=== PATIENT | male | born 1970 | race Caucasian/White ===

== ENCOUNTER 2019-12-06 07:02 | Emergency (ER) | payer OTHER ==
[~2019-12-06] VITALS: Ht 180.3 cm; Wt 87.1 kg
[~2019-12-06 07:02] MED LIST: CIPROFLOXACIN750 MG ORAL; IBUPROFEN600 MG ORAL; PROPECIA1 MG PO
[2019-12-06 07:05] VITALS: BP 147/92
--- NOTE | 2019-12-06 07:12 | NUR ---
ED Nurse Note: patient walked into ED from home c/o diffuse abdominal cramping and pain that started last night. patient reports having some trouble urinating, "feels like I'm getting a prostate exam when voiding." patient reports unable to pass stool at this time. patient is alert awake x ambulatory, breathing unlabored and even, speaking in full sentences. patient on a hospital gown.
[2019-12-06] MEDS ORDERED: Omnipaque-300 100ml vial INJ PRN (07:30)
[2019-12-06] MEDS ORDERED: Morphine Sulfate 4mg/ml Inj (IV USE ONLY) IVP ONE (07:30)
--- NOTE | 2019-12-06 07:40 | NUR ---
ED Nurse Note: patient refused to take pain medications at this time, toradol and morphine, "I'm fine when I' lying donw, I don't need medications at this time."
[2019-12-06] MEDS: Ketorolac 30mg Inj IV ONE ×2 (07:43→09:29)
[2019-12-06 07:52] LABS: BASOPHILS % (AUTO) 0.5 % (0.0-2.0); EOSINOPHILS % (AUTO) 0.4 % (0.0-3.0); HEMATOCRIT 43.8 % (42.0-52.0); HEMOGLOBIN 15.3 G/DL (14.2-18.0); LYMPHOCYTES % (AUTO) 14.1 % (20.0-45.0); MEAN CORPUSCULAR VOLUME 100 FL (80-99); MONOCYTES % (AUTO) 6.1 % (1.0-10.0); NEUTROPHILS % (AUTO) 78.9 % (45.0-75.0); PLATELET COUNT 173 K/UL (150-450); RED BLOOD COUNT 4.38 M/UL (4.70-6.10); RED CELL DISTRIBUTION WIDTH 11.7 % (11.6-14.8); WHITE BLOOD COUNT 10.1 K/UL (4.8-10.8)
[2019-12-06 07:54] LABS: APPEARANCE,URINE CLEAR; BILIRUBIN, URINE NEGATIVE (NEGATIVE); GLUCOSE, URINE (UA) NEGATIVE (NEGATIVE); KETONES,URINE 1+ (NEGATIVE); LEUKOCYTE ESTERASE ,URINE NEGATIVE (NEGATIVE); NITRITE,URINE NEGATIVE (NEGATIVE); PH,URINE 5 (4.5-8.0); PROTEIN,URINE NEGATIVE (NEGATIVE); UROBILINOGEN,URINE NORMAL MG/DL (0.0-1.0)
--- NOTE | 2019-12-06 07:58 | Emergency Room Report ---
History of Present Illness General Chief Complaint: Abdominal Pain Source: Patient Present Illness HPI 48-year-old male presents ED for evaluation of abdominal pain. States he has not had a bowel movement for the last 3 days. Notes hard small stool. Has used MiraLAX and enema without relief. Pain is cramping, 8 out of 10, nonradiating. Denies nausea or vomiting. Denies chest pain. Denies fevers or chills. No other aggravating relieving factors. Denies any other associated symptoms Allergies: Coded Allergies: No Known Allergies (Unverified , 03/11/13) Patient History Past Medical History: none Past Surgical History: none Pertinent Family History: none Social History: Denies: smoking, alcohol use, drug use Immunizations: UTD Reviewed Nursing Documentation: PMH: Agreed; PSxH: Agreed Nursing Documentation-PMH Past Medical History: No Stated History Review of Systems All Other Systems: negative except mentioned in HPI Physical Exam Vital Signs Date Time Temp Pulse Resp B/P (MAP) Pulse Ox O2 Delivery O2 Flow Rate FiO2 12/06/19 07:05 97.9 64 17 147/92 (110) 99 Room Air Sp02 EP Interpretation: reviewed, normal General Appearance: no apparent distress, alert, GCS 15, non-toxic Head: normocephalic, atraumatic Eyes: bilateral eye normal inspection, bilateral eye PERRL ENT: hearing grossly normal, normal pharynx, no angioedema, normal voice Neck: full range of motion, supple/symm/no masses Respiratory: chest non-tender, lungs clear, normal breath sounds, speaking full sentences Cardiovascular #1: regular rate, rhythm, no edema Cardiovascular #2: 2+ carotid (R), 2+ carotid (L), 2+ radial (R), 2+ radial (L) , 2+ dorsalis pedis (R), 2+ dorsalis pedis (L) Gastrointestinal: normal bowel sounds, soft, non-distended, no guarding, no rebound, tenderness Rectal: deferred Genitourinary: normal inspection, no CVA tenderness Musculoskeletal: back normal, normal range of motion, gait/station normal, non- tender Neurologic: alert, motor strength/tone normal, oriented x3, sensory intact, responsive, speech normal Psychiatric: judgement/insight normal, memory normal, mood/affect normal, no suicidal/homicidal ideation Reflexes: 3+ bicep (R), 3+ bicep (L), 3+ tricep (R), 3+ tricep (L), 3+ knee (R) , 3+ knee (L) Skin: no rash Lymphatic: no adenopathy Medical Decision Making Diagnostic Impression: Primary Impression: Diverticulitis Additional Impression: Constipation Qualified Codes: K59.00 - Constipation, unspecified ER Course Hospital Course 48-year-old M presents to ED with lower abdominal pain. no BM x 3 days Differential diagnoses include: appendicitis, diverticulitis, SBO, gastroenteritis Clinical course Patient placed on stretcher. desk sergeant. After initial history and physical I ordered labs, IV fluids, UA, pain medication and CT scan Labs - no leukocytosis, Hb/Hct stable. electrolytes ok. CT abdomen and pelvis - diverticulitis, fecal impaction, no SBO I discussed findings with patient and family at bedside. No sign of SBO. Patient states he recently started a keto diet which likely triggered his diverticulitis and can be causing his constipation. No sign of bowel obstruction. Afebrile, nontoxic-appearing. Will discharge home with antibiotics and stool softeners. States he will follow-up with his GI. Given copies of labs and CT. Given Cipro and Flagyl here in ED I feel this is a highly complex case requiring extensive working including EKG/ Rhythm strip, Xray/CT/US, Blood/urine lab work, repeat exams while in ED, and administration of strong opiates/narcotics for pain control, admission to hospital or close patient follow up. Diagnosis - divertculitis, constipation stable and discharged to home with prescription for Cipro and Flagyl, colace, magnesium citrate. Followup with PMD. Return to ED if symptoms recur or worsen Labs Test 12/06/19 07:33 White Blood Count 10.1 K/UL (4.8-10.8) Red Blood Count 4.38 M/UL (4.70-6.10) Hemoglobin 15.3 G/DL (14.2-18.0) Hematocrit 43.8 % (42.0-52.0) Mean Corpuscular Volume 100 FL (80-99) Mean Corpuscular Hemoglobin 34.9 PG (27.0-31.0) Mean Corpuscular Hemoglobin Concent 35.0 G/DL (32.0-36.0) Red Cell Distribution Width 11.7 % (11.6-14.8) Platelet Count 173 K/UL (150-450) Mean Platelet Volume 6.2 FL (6.5-10.1) Neutrophils (%) (Auto) 78.9 % (45.0-75.0) Lymphocytes (%) (Auto) 14.1 % (20.0-45.0) Monocytes (%) (Auto) 6.1 % (1.0-10.0) Eosinophils (%) (Auto) 0.4 % (0.0-3.0) Basophils (%) (Auto) 0.5 % (0.0-2.0) Urine Color Yellow Urine Appearance Clear Urine pH 5 (4.5-8.0) Urine Specific [place] 1.015 (1.005-1.035) Urine Protein Negative (NEGATIVE) Urine Glucose (UA) Negative (NEGATIVE) Urine Ketones 1+ (NEGATIVE) Urine Blood Negative (NEGATIVE) Urine Nitrite Negative (NEGATIVE) Urine Bilirubin Negative (NEGATIVE) Urine Urobilinogen Normal MG/DL (0.0-1.0) Urine Leukocyte Esterase Negative (NEGATIVE) Sodium Level 142 MMOL/L (136-145) Potassium Level 4.0 MMOL/L (3.5-5.1) Chloride Level 103 MMOL/L (98-107) Carbon Dioxide Level 22 MMOL/L (21-32) Anion Gap 17 mmol/L (5-15) Blood Urea Nitrogen 16 mg/dL (7-18) Creatinine 1.1 MG/DL (0.55-1.30) Estimat Glomerular Filtration Rate > 60 mL/min (>60) Glucose Level 97 MG/DL (74-106) Calcium Level 9.3 MG/DL (8.5-10.1) Total Bilirubin 1.2 MG/DL (0.2-1.0) Direct Bilirubin 0.2 MG/DL (0.0-0.3) Aspartate Amino Transf (AST/SGOT) 47 U/L (15-37) Alanine Aminotransferase (ALT/SGPT) 65 U/L (12-78) Alkaline Phosphatase 84 U/L (46-116) Total Protein 7.8 G/DL (6.4-8.2) Albumin 4.5 G/DL (3.4-5.0) Globulin 3.3 g/dL Albumin/Globulin Ratio 1.4 (1.0-2.7) Lipase 98 U/L (73-393) CT/MRI/US Diagnostic Results CT/MRI/US Diagnostic Results : Imaging Test Ordered: CT A/P Impression Findings: Lack of enteric contrast limits assessment of the GI tract. There is colonic diverticulosis. There is fairly extensive infiltration of the fat surrounding the proximal sigmoid colon. There is a small amount of fluid tracking within the adjacent fascial planes. No organized fluid collection demonstrated. No extraluminal gas. There is a mild amount of retained stool within the colon. The appendix is normal. Distal small bowel loops are somewhat prominent in caliber, fluid-filled. This extends all the way to the ileocecal valve without evidence of transition zone or obstructive lesion. No free intraperitoneal gas. The distal esophagus, stomach, duodenum are unremarkable. There are small bilateral inguinal hernias which contain only fat. The liver demonstrates a subcentimeter low-attenuation lesion in segment 4A and another in segment 8. The gallbladder demonstrates questionable very subtle gallstones. No biliary ductal dilatation. The pancreas, spleen, adrenals are unremarkable. The right kidney demonstrates subcentimeter low-attenuation lesions which are too small to characterize. The left kidney demonstrates multiple cysts including a large 8 cm upper pole cyst. No retroperitoneal or mesenteric mass or adenopathy. No pelvic mass or adenopathy. The included lung bases are clear. The bones are unremarkable except for mild degenerative facet arthrosis of the lumbar spine Impression: Evidence of acute proximal sigmoid diverticulitis Mildly prominent fluid-filled distal small bowel loops, nonspecific, but could indicate mild enteritis changes Very questionable cholelithiasis Left renal cysts. Right-sided subcentimeter low-attenuation renal lesions, too small to characterize, most likely benign simple cysts Incidental findings as noted, including lumbar degenerative facet arthrosis, small fat-containing bilateral inguinal hernias The CT scanner at [facility] is accredited by the [employer] and the scans are performed using protocols designed to limit radiation exposure to as low as reasonably achievable to attain images of sufficient resolution adequate for diagnostic evaluation. Last Vital Signs Date Time Temp Pulse Resp B/P (MAP) Pulse Ox O2 Delivery O2 Flow Rate FiO2 12/06/19 07:51 64 17 Room Air 12/06/19 07:05 97.9 147/92 99 Status: improved Disposition: HOME, SELF-CARE Condition: Stable Scripts Magnesium Citrate (CITRATE OF MAGNESIA) 296 Ml Solution 150 ML PO DAILY for 2 Days, #296 ML Prov: Diego Kirkland MD 12/06/19 Docusate Sodium* (COLACE*) 100 Mg Capsule 100 MG ORAL THREE TIMES A DAY, #30 CAP Prov: Diego Kirkland MD 12/06/19 Metronidazole* (FLAGYL*) 500 Mg Tablet 500 MG ORAL THREE TIMES A DAY, #21 TAB Prov: Diego Kirkland MD 12/06/19 Ciprofloxacin Hcl* (CIPROFLOXACIN HCL*) 500 Mg Tablet 500 MG ORAL Q12H, #14 TAB 0 Refills Prov: Diego Kirkland MD 12/06/19 Referrals: NON PHYSICIAN (PCP) Diego Kirkland MD Dec 06, 2019 07:58
[2019-12-06 07:59] LABS: COLOR,URINE YELLOW
[2019-12-06 09:03] LABS: ANION GAP 17 mmol/L (5-15); BLOOD UREA NITROGEN 16 mg/dL (7-18); CALCIUM 9.3 MG/DL (8.5-10.1); CARBON DIOXIDE 22 MMOL/L (21-32); CHLORIDE 103 MMOL/L (98-107); CREATININE 1.1 MG/DL (0.55-1.30); SODIUM 142 MMOL/L (136-145)
[2019-12-06 09:13] LABS: ALANINE AMINOTRANSFERASE 65 U/L (12-78); ALBUMIN 4.5 G/DL (3.4-5.0); ALBUMIN/GLOBULIN RATIO 1.4 (1.0-2.7); ALKALINE PHOSPHATASE 84 U/L (46-116); ASPARTATE AMINO TRANSFERASE 47 U/L (15-37); BILIRUBIN,TOTAL 1.2 MG/DL (0.2-1.0)
[2019-12-06 09:14] LABS: BILIRUBIN,DIRECT 0.2 MG/DL (0.0-0.3)
--- NOTE | 2019-12-06 09:36 | NUR ---
ED Nurse Note: patient taken down to CT scan via wheelchair.
--- NOTE | 2019-12-06 10:00 | NUR ---
ED Nurse Note: patient came back from CT scan.
--- NOTE | 2019-12-06 10:40 | Diagnostic Imaging Report ---
Clinical Indication: Abdominal pain, no bowel movements for 3 days Technique: No oral contrast utilized, per emergency room physician request IV administration nonionic contrast. Venous phase spiral acquisition obtained through the abdomen and pelvis. Multiplanar reconstructions were generated. Total dose length product 434 mGycm. CTDIvol(s) 7.9 mGy. Dose reduction achieved using automated exposure control Comparison: none Findings: Lack of enteric contrast limits assessment of the GI tract. There is colonic diverticulosis. There is fairly extensive infiltration of the fat surrounding the proximal sigmoid colon. There is a small amount of fluid tracking within the adjacent fascial planes. No organized fluid collection demonstrated. No extraluminal gas. There is a mild amount of retained stool within the colon. The appendix is normal. Distal small bowel loops are somewhat prominent in caliber, fluid-filled. This extends all the way to the ileocecal valve without evidence of transition zone or obstructive lesion. No free intraperitoneal gas. The distal esophagus, stomach, duodenum are unremarkable. There are small bilateral inguinal hernias which contain only fat. The liver demonstrates a subcentimeter low-attenuation lesion in segment 4A and another in segment 8. The gallbladder demonstrates questionable very subtle gallstones. No biliary ductal dilatation. The pancreas, spleen, adrenals are unremarkable. The right kidney demonstrates subcentimeter low-attenuation lesions which are too small to characterize. The left kidney demonstrates multiple cysts including a large 8 cm upper pole cyst. No retroperitoneal or mesenteric mass or adenopathy. No pelvic mass or adenopathy. The included lung bases are clear. The bones are unremarkable except for mild degenerative facet arthrosis of the lumbar spine Impression: Evidence of acute proximal sigmoid diverticulitis Mildly prominent fluid-filled distal small bowel loops, nonspecific, but could indicate mild enteritis changes Very questionable cholelithiasis Left renal cysts. Right-sided subcentimeter low-attenuation renal lesions, too small to characterize, most likely benign simple cysts Incidental findings as noted, including lumbar degenerative facet arthrosis, small fat-containing bilateral inguinal hernias The CT scanner at [facility] is accredited by the [employer] and the scans are performed using protocols designed to limit radiation exposure to as low as reasonably achievable to attain images of sufficient resolution adequate for diagnostic evaluation.
[2019-12-06] MEDS ORDERED: CIPROFLOXACIN500 M2 ORAL (11:02)
[2019-12-06] MEDS ORDERED: CITRATE OF MAG296 ML PO (11:02)
[2019-12-06] MEDS ORDERED: METRONIDAZOLE500 MG ORAL (11:02)
[2019-12-06] MEDS ORDERED: COLACE100 MG ORAL (11:02)
[2019-12-06 11:10] VITALS: BP 142/89
[2019-12-06 11:12] VITALS: BP 142/89
--- NOTE | 2019-12-06 11:12 | NUR ---
ER DISCHARGE NOTE: Patient is cleared to be discharged per ERMD DR COLEMAN, pt is aox4, on room air, with stable vital signs. pt was given dc and prescription instructions, pt was able to verbalize understanding, pt id band and iv site removed without complications. pt is able to ambulate with steady gait. pt took all belongings.
[2019-12-06] MEDS ORDERED: Ciprofloxacin 500mg tab ORAL ONE (11:15)
[2019-12-06] MEDS ORDERED: metroNIDAZOLE 500mg tab ORAL ONE (11:15)
== END 2019-12-06 11:13 | disposition home or self-care (01) ==
LOC: EMR 07:20
DX: K57.32 Diverticulitis of large intestine without perforation or abscess without bleeding (principal); K59.00 Constipation, unspecified
CPT/HCPCS: 36415; 74177; 80053; 81003; 82248; 83690; 85025; 96374; 99284; J1885; J7040; Q9967